=== PATIENT | male | born 1985 | race Caucasian/White ===

== ENCOUNTER 2018-08-26 12:02 | Inpatient (IN) | payer OTHER ==
[~2018-08-26] VITALS: Ht 175.3 cm; Wt 54.4 kg
--- NOTE | 2018-08-26 12:45 | NUR ---
PRE-ASSESSMENT NOTE: assessed pt in intake office, pt is in stable condition. pt is the main source of information and appears to be mildly intoxicated and verbalized i last used prior to coming in. pt is compliant and pleasant. explained protocols and procedures and pt verbalized understanding.
[2018-08-26 13:30] VITALS: BP 160/101
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
[2018-08-26 14:00] VITALS: BP 145/82
--- NOTE | 2018-08-26 14:44 | NUR ---
MD COMMUNICATION Patient seen and examined by Dr. Chavez with new admitting orders. Patient scheduled to begin a 4 day Subutex taper, tomorrow morning. Continues under close observation and has PRN medications available for s/sx of withdrawal.
[2018-08-26] MEDS ORDERED: MIRALAX 17 GM POWD.PACK PO PRN (14:45)
[2018-08-26] MEDS ORDERED: ACETAMINOPHEN 325 MG TABLET PO PRN (14:45)
[2018-08-26] MEDS ORDERED: ONDANSETRON ODT 4 MG TAB.RAPDIS SL PRN (14:45)
[2018-08-26] MEDS ORDERED: HYDROXYZINE PAMOATE 25 MG CAPSULE PO PRN (14:45)
[2018-08-26] MEDS ORDERED: LOPERAMIDE HCL 2 MG CAPSULE PO PRN ×2 (14:45)
[2018-08-26] MEDS ORDERED: MAG HYDROX/AL HYDROX/SIMETH 30 ML LIQUID UDC PO PRN (14:45)
[2018-08-26] MEDS ORDERED: MAGNESIUM HYDROXIDE 30 ML LIQUID UDC PO PRN (14:45)
[2018-08-26 15:09] LABS: *AMPHETAMINE, URINE NEGATIVE (NEGATIVE); *BARBITURATE, URINE NEGATIVE (NEGATIVE); *CANNABINOID, URINE POSITIVE (NEGATIVE); *COCCAINE, URINE POSITIVE (NEGATIVE); *OPIATE, URINE POSITIVE (NEGATIVE); *PHENCYCLIDINE SCREEN,URINE NEGATIVE (NEGATIVE)
[2018-08-26 16:46] VITALS: BP 140/86
--- NOTE | 2018-08-26 17:00 | NUR ---
COW ASSESSMENT Patient in room, noted with anxious mood and flat affect, exhibiting the following s/sx of withdrawal: c/o chills, enlarged pupils, runny nose, abdominal cramps, agitation, anxiety, decreased appetite, depression, difficulty concentrating, emotional volatility, generalized discomfort, hypervigilance, increased emotional amplitude, restlessness, and tremors. Patient with current COW score of: 9. Will continue to monitor.
[2018-08-26 18:11] LABS: BASOPHILS # (AUTO) 0.1 K/uL (0.0-8.0); BASOPHILS % (AUTO) 1.2 % (0.0-2.0); EOSINOPHILS # (AUTO) 0.4 K/uL (0.0-0.7); EOSINOPHILS % (AUTO) 4.9 % (0.0-7.0); HEMATOCRIT 48.1 % (36.7-47.1); HEMOGLOBIN 16.4 g/dL (12.5-16.3); LYMPHOCYTES # (AUTO) 2.6 K/uL (20.0-40.0); LYMPHOCYTES % (AUTO) 33.7 % (20.5-51.5); MEAN CORPUSCULAR HEMOGLOBIN 30.2 uug (23.8-33.4); MEAN CORPUSCULAR HGB CONC 34 g/dL (32.5-36.3); MEAN CORPUSCULAR VOLUME 88.4 fL (73.0-96.2); MONOCYTES # (AUTO) 0.4 K/uL (2.0-10.0); MONOCYTES % (AUTO) 5.2 % (0.0-11.0); NEUTROPHILS # (AUTO) 4.2 K/uL (1.8-8.9); PLATELET COUNT (AUTO) 209 K/uL (152-348); RED BLOOD CELL COUNT(AUTO) 5.44 MIL/uL (4.06-5.63); WHITE BLOOD COUNT (AUTO) 7.6 K/uL (3.6-10.2)
[2018-08-26 18:20] LABS: ETHANOL < 3 MG/DL (0-0)
[2018-08-26 18:23] LABS: ALANINE AMINOTRANSFERASE 34 U/L (16-63); ALKALINE PHOSPHATASE 93 U/L (50-136); ASPARTATE AMINOTRANSFERASE 21 U/L (15-37); BILIRUBIN,TOTAL 0.5 mg/dL (0.2-1.0); CARBON DIOXIDE 28 mmol/L (21-32); CHLORIDE 102 mmol/L (98-107); CREATININE 1.1 mg/dL (0.6-1.3); GLUCOSE 89 mg/dL (74-106); MAGNESIUM 2.1 mg/dL (1.8-2.4); POTASSIUM 3.9 mmol/L (3.5-5.1); TOTAL PROTEIN, SERUM 8.5 g/dL (6.4-8.2); UREA NITROGEN, BLOOD 12 mg/dL (7-18)
[2018-08-26 18:34] LABS: THYROID STIMULATING HORMONE 0.821 mIU/mL (0.358-3.740)
--- NOTE | 2018-08-26 19:16 | NUR ---
END OF SHIFT Patient endorsed to copy camera operator nurse, all pertinent information was discussed. Patient admitted during shift. Patient is scheduled to begin a 4 day Subutex taper tomorrow morning. During shift patient was noted exhibiting the following s/sx of withdrawal: c/o chills, enlarged pupils, runny nose, abdominal cramps, agitation, anxiety, decreased appetite, depression, difficulty concentrating, emotional volatility, generalized discomfort, hypervigilance, increased emotional amplitude, restlessness, and tremors. Last COW score of: 9. No Subutex was administered during shift. No PRNs were given during shift. Safety measures are in place. Patient encouraged to participate in therapy sessions, and encouraged diversional activities to alleviate anxiety. denies SI/HI.
--- NOTE | 2018-08-26 19:30 | NUR ---
Start of Shift Patient Received. Patient was admitted for Opiate Withdrawal and with orders to start a 4 day Subutex taper. No PRN medications administered upon admission. Patients last noted COWS noted to be 9. All needs attended to promptly. Will continue plan of care as ordered.
[2018-08-26 20:21] VITALS: BP 131/86
[2018-08-26] MEDS ORDERED: TRAZ-182 PO (20:21)
[2018-08-26] MEDS ORDERED: TRAZODONE 50 MG TABLET PO ONE (22:30)
[2018-08-27] VITALS (7 sets, daily range): BP systolic 100–143; BP diastolic 74–86
--- NOTE | 2018-08-27 00:15 | NUR ---
COWS Assessment Patient is noted in bed with eyes closed. Breathing even and non labored. Vital signs rendered and pulse is noted to be 54. patient is noted to easily fall back asleep during vitals. All needs attended to promptly. will continue to monitor.
[2018-08-27] MEDS: BUPRENORPHINE HCL 2 MG TAB.SUBL SL PRN ×2 (04:58→12:23)
--- NOTE | 2018-08-27 05:00 | NUR ---
PRN medication Administration patient is noted awake and verbalizing increased restlessness, anxiety, body aches, runny nose, stomach cramps, tremulous, and piloerect skin. COWS noted to be 16. PRN Subutex 4mg administered. Will continue to monitor.
--- NOTE | 2018-08-27 06:00 | NUR ---
PRN Medication Reassessment Patient is noted in bed with eyes closed but is easily awakened. Breathing even and non labored. Patient is able to verbalize "the medication helped. I'm just trying to get more rest." COWS noted to be 7. PRN Subutex noted to be effective. Will continue to monitor.
--- NOTE | 2018-08-27 07:16 | NUR ---
End of Shift Patient is noted in bed with eyes closed. Breathing even and non labored. Patient is set to start a 4 day Subutex taper. He was noted with increase anxiety, restlessness, tremulous, runny nose, stomach cramps, and piloerect skin. Last noted COWS 16. PRN Subutex 4mg administered with medication noted to be effective. Patient noted to sleep a total of 7 hours. All needs attended to promptly. Will endorse to continue plan of care as ordered.
--- NOTE | 2018-08-27 07:35 | NUR ---
BEGINNING OF SHIFT Patient endorsement report received from material handler 1st shift nurse, all pertinent information was discussed. Patient admitted yesterday with admitting dx: opiate withdrawal. Patient is scheduled to begin a 5 day Subutex taper this morning. Received PRN: Subutex during material handler 1st shift as ordered for s/sx of withdrawal. Patient with last COW score of: 7. Slept for 7 hours. Per material handler 1st shift patient with difficulty falling and staying asleep, will notify psychiatrist during shift. Patient received in bed with eyes closed respirations even and unlabored, resopnsive to verbal stimuli. Will educate patient regarding plan of care for the day and medication regimen. Safety measures are in place. call light kept with in reach, will continue to monitor closely.
[2018-08-27] MEDS: DICYCLOMINE HCL 20 MG TABLET PO PRN ×2 (08:19→16:49)
[2018-08-27] MEDS: METHOCARBAMOL 750 MG TABLET PO PRN ×2 (08:19→16:49)
[2018-08-27] MEDS: MULTIVITAMINS,THERAPEUTIC TABLET PO SCH (08:19)
[2018-08-27] MEDS: BUPRENORPHINE HCL 2 MG TAB.SUBL SL SCH ×3 (08:19→20:18)
--- NOTE | 2018-08-27 08:19 | NUR ---
COW ASSESSMENT & PRN BENTYL/ROBAXIN Patient noted exhibiting the following s/sx of withdrawal: abdominal cramps, agitation, anhedonia, anxiety, artralgias, chills, decreased appetite, depression, difficulty concentrating, emotional volatility, fatigue, generalized discomfort, hypervigilance, increased emotional amplitude, increased startle response, low and mid back pain, malise, muscle aches, muscle spasms, nasal congestion, piloerection, restless legs, restlessness, and yawning. Patient with last COW score of: 15. Received all scheduled due medications and PRN: Bentyl and Robaxin, will monitor effectiveness of medication.
[2018-08-27] MEDS ORDERED: 4 DAY TAPER BUPRENORPHINE -SERENITY PROTOCOL SL PRN (09:00)
[2018-08-27] MEDS ORDERED: TUBERCULIN,PURIF.PROT.DERIV. 5 TU/0.1 ML TEST ID ONE (09:00)
--- NOTE | 2018-08-27 09:19 | NUR ---
BENTYL/ROBAXIN REASSESSMENT Patient reports medication effective, decrease in abdominal cramps and decrease is myalgia. Current pain level 3/10, will continue to monitor. safety measures in place.
--- NOTE | 2018-08-27 12:23 | NUR ---
PRN SUBUTEX/COW ASSESSMENT Patient presented with the following during COW assessment, nausea, abdominal cramps, agitation, anhedonia, anxiety, arthralgias, chills, decreased appetite, depression, difficulty concentrating, emotional volatility, fatigue, generalized discomfort, hypervigilance, increased emotional amplitude, increased startle response, low and mid back pain, malaise, muscle aches, muscle spasms, nasal congestion, piloerection, restless legs, restlessness, and yawning. With COW score of: 16, As per MD orders patient was administered PRN subutex 4mg SL as ordered, will monitor effectiveness of medication.
--- NOTE | 2018-08-27 12:53 | NUR ---
SUBUTEX REASSESSMENT Patient continues to exhibit the following s/sx: Nausea, abdominal cramps, agitation, anhedonia, anxiety, arthralgias, chills, decreased appetite, depression, difficulty concentrating, emotional volatility, fatigue, generalized discomfort, hypervigilance, increased emotional amplitude, increased startle response, low and mid back pain, malaise, muscle aches, muscle spasms, nasal congestion, piloerection, restless legs, restlessness, and yawning. With COW score of: 16, As per MD Administered 1500 as ordered. PRN medication not effective, MD is aware, encouraged patient to increase PO fluid intake as tolerated, offered PRN medication for nausea and declined. Will continue to monitor closely.
[2018-08-27] MEDS: CLONIDINE HCL 0.1 MG TABLET PO PRN (16:49)
[2018-08-27] MEDS: IBUPROFEN 600 MG TABLET PO PRN (16:49)
--- NOTE | 2018-08-27 16:49 | NUR ---
PRN MOTRIN/CLONIDINE/BENTYL/ROBAXIN Patient presented with the following during COW assessment, nausea, abdominal cramps, agitation, anhedonia, anxiety, arthralgias, chills, decreased appetite, depression, difficulty concentrating, emotional volatility, fatigue, generalized discomfort, hypervigilance, increased emotional amplitude, increased startle response, low and mid back pain, malaise, muscle aches, muscle spasms, nasal congestion, piloerection, restless legs, restlessness, and yawning. With COW score of: 16. Patient was administered Motrin and Robaxin for pain level of 7/10, Administered Bentyl for Abdominal cramps, Administered Clonidine for increase anxiety/agitation. Offered Anti-nausea medication and declined, will monitor for effectiveness of medications. Will continue to monitor.
--- NOTE | 2018-08-27 17:49 | NUR ---
MOTRIN/CLONIDINE/BENTYL ROBAXIN REASSESSMENT Patient reports medications were effective, current pain level of 4/10. patient reports decrease in abdominal cramps and decrease pain level. Safety measures are in place. will continue to monitor closely.
--- NOTE | 2018-08-27 19:14 | NUR ---
END OF SHIFT Patient in room, alert and oriented x4, noted isolative. Appears disheveled, unshaven and odorous. Presenting with flat affect, avoidant eye contact. Has sad facial expression, and anxious mood. Patient continues under close observation, began 1st day of Subutex taper during shift. Encouraged patient to increase PO fluid intake as tolerated. Patient noted exhibiting the following s/sx of withdrawal during shift: abdominal cramps, agitation, anhedonia, anxiety, arthralgias, chills, decreased appetite, depression, difficulty concentrating, emotional volatility, fatigue, generalized discomfort, hypervigilance, increased emotional amplitude, increased startle response, low and mid back pain, malaise, muscle aches, muscle spasms, nasal congestion, nausea, piloerection, restless legs, restlessness, and yawning. Patient with last COW score of: 16. Received PRN: Subutex 4mg sl at 1223, Bentyl and Robaxin as ordered at 0819 and 1649, and Motrin and clonidine at 1649 medications were effective. During shift patient received PPD to left F/A. Was seen by Dr. Kumar during shift, with new orders for Seroquel for sleep. Encouraged patient to increase PO fluid intake as tolerated. Denies SI/HI. Safety measures are in place. Call light with in reach, endorsed to shift stacker nurse, all pertinent information was discussed.
--- NOTE | 2018-08-27 19:30 | NUR ---
302 Start of Shift Received report on 33 year old male admitted to [facility] for medically supervised withdrawal from Opiates with a history of cocaine and marijuana use. Pt received PRN Bentyl x 2, Robaxin x 2, Subutex, and Clonidine. Last COW 16 @ 1600. Pt currently on day 1 of a 4 day Subutex taper. Pt in dark room, room and pt unkempt, anxious, agitated, flushed, and complains of poor appetite for food and/or fluids, generalized pains, and difficulty resting. Respirations even and unlabored. Will continue to monitor.
--- NOTE | 2018-08-27 20:17 | NUR ---
PRN Tylenol Pt has low grade temperature and complains of generalized pain 07/09. Tylenol given per order. Will monitor effect.
--- NOTE | 2018-08-27 21:17 | NUR ---
Reassess PRN Tylenol Tylenol not effective. Continue to have complaint of generalized pain 5/10. Will continue to monitor.
[2018-08-27] MEDS: QUETIAPINE FUMARATE 25 MG TABLET PO SCH (21:50)
--- NOTE | 2018-08-28 00:46 | NUR ---
CIWA/VITALS CIWA deferred. Vitals refused. Pt in bed resting, Respirations even and unlabored. Continue to monitor. Addendum: 08/28/18 at 0413 by JOSÉ TORREZ LVN correction COWS not CIWA
--- NOTE | 2018-08-28 04:08 | NUR ---
CIWA/ Vitals CIWA deferred. Vitals refused. Pt in bed resting, Respirations even and unlabored. Continue to monitor. Addendum: 08/28/18 at 0413 by JOSÉ TORREZ LVN correction COWS not CIWA
[2018-08-28 06:05] LABS: HEPATITIS B SURFACE AG Negative (Negative)
--- NOTE | 2018-08-28 06:47 | NUR ---
End of Shift Will endorse care of 33 year old male admitted to [facility] for medically supervised withdrawal from Opiates with a history of cocaine and marijuana use. Pt received PRN Tylenol x1. Last COW 15 at 1999. Pt currently on day 2 of a 4 day Subutex taper. PO intake 1332ml, void x3, BM x 0 ,and slept x 9 hours. Pt in bed resting with eyes closed. Respirations even and unlabored.
--- NOTE | 2018-08-28 07:30 | NUR ---
BEGINNING OF SHIFT Patient received in bed with eyes closed, respirations even and unlabored. Patient responsive to verbal stimuli, will educate patient during shift of plan of care for the day and medication regimen. Received report received from hourly shift manager nurse, all pertinent information was discussed. continues under close observation and ongoing 4 day Subutex taper, scheduled to begin day 2 of taper. Patient with last COW score of: 15. Slept for 9 hours. Per hourly shift manager patient with low grade fever, will monitor closely during shift. Received PRN: Tylenol during hourly shift manager, medication was effective. Safety measures are in place. call light kept with in reach, will continue to monitor closely.
[2018-08-28 08:30] VITALS: BP 118/90
[2018-08-28] MEDS: IBUPROFEN 600 MG TABLET PO PRN (08:32)
[2018-08-28] MEDS: METHOCARBAMOL 750 MG TABLET PO PRN (08:32)
[2018-08-28] MEDS: DICYCLOMINE HCL 20 MG TABLET PO PRN ×2 (08:33→21:25)
[2018-08-28] MEDS: MULTIVITAMINS,THERAPEUTIC TABLET PO SCH (08:33)
--- NOTE | 2018-08-28 08:33 | NUR ---
COW ASSESSMENT & PRN BENTYL/ROBAXIN Patient continues under close observation, presented with:abdominal cramps, agitation, anhedonia, anxiety, arthralgias, chills, decreased appetite, depression, difficulty concentrating, emotional volatility, fatigue, generalized discomfort, hypervigilance, increased emotional amplitude, increased startle response, low and mid back pain, malaise, muscle aches, muscle spasms, nasal congestion, piloerection, restless legs, restlessness, and yawning. Patient with last COW score of: 15. Received all scheduled due medications and PRN: Bentyl for abdominal cramps, Motrin (for low and mid back pain /10) and Robaxin (for myalgia 10), will monitor effectiveness of medication. Safety measures in place.
[2018-08-28] MEDS ORDERED: BUPRENORPHINE HCL 2 MG TAB.SUBL SL SCH (09:00)
--- NOTE | 2018-08-28 09:33 | NUR ---
BENTYL/MOTRIN/ROBAXIN REASSESSMENT Patient reports medication effective, decrease in abdominal cramps and decrease is myalgia and decrease in low and mid back pain. Current pain level 4/10, will continue to monitor. safety measures in place.
--- NOTE | 2018-08-28 10:28 | NUR ---
Therapist prompted client to attend group therapy.
--- NOTE | 2018-08-28 13:00 | NUR ---
COW ASSESSMENT Patient continues to present with the following s/sx: stomach cramps, anhedonia, anxiety, arthralgias, chills, decreased appetite, depression, difficulty concentrating, emotional volatility, fatigue, generalized discomfort, hypervigilance, increased emotional amplitude, increased startle response, low and mid back pain, malaise, muscle aches, muscle spasms, nasal congestion, piloerection, restless legs, restlessness, and yawning. current COW score of: 15. Will continue to monitor.
[2018-08-28 13:06] VITALS: BP 131/88
[2018-08-28] MEDS: BUPRENORPHINE HCL 2 MG TAB.SUBL SL SCH ×2 (14:55→21:25)
--- NOTE | 2018-08-28 16:39 | NUR ---
COW ASSESSMENT Continues to exhibit:stomach cramps, anhedonia, anxiety, arthralgias, chills, decreased appetite, depression, difficulty concentrating, emotional volatility, fatigue, generalized discomfort, hypervigilance, increased emotional amplitude, increased startle response, low and mid back pain, malaise, muscle aches, muscle spasms, nasal congestion, piloerection, restless legs, restlessness, and yawning. current COW score of: 15. Will continue to monitor. Safety measures are in place. scheduled medications administered as ordered.
[2018-08-28 16:40] VITALS: BP 146/94
--- NOTE | 2018-08-28 18:54 | NUR ---
END OF SHIFT Patient continues under close observation. Admitting Dx: opiate withdrawal. Patient continues with ongoing 4 day Subutex taper as ordered, currently on day 2 of taper. During shift patient presented with avoidant eye contact, and flat affect. Noted with anxious/depressed mood. Appears disheveled, and unshaven, encouraged patient maintain of personal space and self grooming with good verbal understanding, offered linen change and refused. Still noted isolative, encouraged to participate in group therapies/sessions to learn new coping skills to prevent relapse. Exhibited the following s/sx of withdrawal during shift: abdominal cramps, agitation, anhedonia, anxiety, arthralgias, chills, decreased appetite, depression, difficulty concentrating, emotional volatility, fatigue, generalized discomfort, hypervigilance, increased emotional amplitude, increased startle response, low and mid back pain, malaise, muscle aches, muscle spasms, nasal congestion, piloerection, restless legs, restlessness, and yawning. Patient with last COW score of: 15. Received PRN: Motrin, Bentyl and Robaxin during shift, medications were effective. Encouraged patient to increase PO fluid intake as tolerated. Denies SI/HI. Safety measures are in place. Call light with in reach, endorsed to warehouse supervisor 3rd shift nurse, all pertinent information was discussed.
--- NOTE | 2018-08-28 19:45 | NUR ---
Start of Shift Note Received a 33 y/o male px, admitted for medically supervised withdrawal from Heroin. Px is also using cocaine and marijuana. Px was placed on 4 day Subutex taper, started 08/27/2018. He is tolerating it. Last COWS reported by AM shift nurse is 15. During the rounds at 1945, px is awake on bed in fowlers position watching TV. Few drinks noted on top of the bed side table. Px appears anxious and depressed. He has flat affect. He is unshaven. Px states that his anxiety is pretty low right now but complains of stomach cramps and chills. Bed on lowest position, side rails up 2x and call light within reach. Well continue to monitor.
[2018-08-28 20:00] VITALS: BP 115/76
--- NOTE | 2018-08-28 20:00 | NUR ---
COWS 11 Upon assessment, Px appears anxious and depressed. He has flat affect. He states that his anxiety is pretty low right now but complains of stomach cramps and chills. NC= 74. will continue to monitor
[2018-08-28] MEDS: QUETIAPINE FUMARATE 25 MG TABLET PO SCH (21:25)
--- NOTE | 2018-08-28 21:25 | NUR ---
PRN Bentyl Px received Bentyl 20 mg PO for stomach cramps. To reassess after an hour
--- NOTE | 2018-08-28 22:30 | NUR ---
PRN Klaus reassessment Px states that his stomach cramps improved.
[2018-08-29] VITALS: BP 111/71
--- NOTE | 2018-08-29 | NUR ---
COWS 10 Upon assessment, Px still awake on bed on right side lying position. He states that his anxiety is still on low side and have chills. AL= 71. will continue to monitor
[2018-08-29 04:00] VITALS: BP 109/69
--- NOTE | 2018-08-29 04:00 | NUR ---
COWS deferred COWS deferred due to the px is asleep, to assess if the px is awake per doctor's order. will continue to monitor
--- NOTE | 2018-08-29 07:05 | NUR ---
End of Shift Note During the shift at 2124, px received Bentyl 20 mg PO for stomach cramps. It was effective. Oral intake of 1000 ml, voided 2x, No BM. Px slept for 6 hours. Last COWS 10. Bed on lowest position, side rails up 2x and call light within reach. Well continue to monitor. Px was endorsed to AM shift nurse.
--- NOTE | 2018-08-29 07:30 | NUR ---
START OF SHIFT Endorse rcvd from ongoing nurse, client is in bed, lying on his R side, eyes closed, he sounds asleep, easy to arouse, RR 16 even, non-labored, dark circles under eyes, unshaven, and dry lips. Last COWS 10 @ 2400. PRN Bentyl 20mg PO for abdominal spasms. Client slept 6 hrs. Client is on third of 4 day Subutex taper. [place] precautions in place. Call light within reach.
--- NOTE | 2018-08-29 08:22 | NUR ---
Zero induration noted at PPD test on L forearm.
[2018-08-29 08:55] VITALS: BP 127/73
[2018-08-29] MEDS: BUPRENORPHINE HCL 2 MG TAB.SUBL SL SCH ×3 (09:52→21:00)
[2018-08-29] MEDS: MULTIVITAMINS,THERAPEUTIC TABLET PO SCH (09:52)
--- NOTE | 2018-08-29 09:52 | NUR ---
COWS 10 Client is in bed, a/o to name, place, and situation. Client reports abdominal cramps, agitation, anxiety, nausea, appetite loss, yawning, chills, clammy skin, depression, difficulty concentrating, difficulty thinking clearly, enlarged pupils, fatigue, tremors felt, insomnia, muscle aches all, and panic feeling. Administered Subutex 2mg SL. Call light within reach.
--- NOTE | 2018-08-29 12:31 | NUR ---
COWS 10 Client presents with agitation, anxiety, poor appetite, chills, clammy skin, depression, emotional volatility, enlarged pupils, fatigue, fine tremors, flushed face, and yawning. Client decline PRN medications to help manage withdrawal symptoms. Will continue to monitor. Encourage client to increase PO fluid to facilitate detox. Call light within reach.
[2018-08-29 12:33] VITALS: BP 125/88
--- NOTE | 2018-08-29 15:40 | NUR ---
COWS 10 Client reports abdominal cramps, agitation, anxiety, nausea, appetite loss, yawning, chills, clammy skin, depression, enlarged pupils, fatigue, and tremors felt. Client refuses Subutex 2mg SL, stating, "I will take it tonight, I must get used to deal with this without the extra help from medication." Educated client on the need for compliance with Subutex taper medication, but he still refused the med. MD and CN notified. Call light within reach.
[2018-08-29 16:55] VITALS: BP 135/86
--- NOTE | 2018-08-29 19:11 | NUR ---
END OF SHIFT Endorse client to incoming nurse, client is in room, a/o x 4. Client continues to present agitation, anxiety, tremors, nausea, restlessness, and difficulty concentrating. Client is on third of 5 day Subutex taper. Last COWS 10 @ 1600. PO fluid intake 1250mL, void x 2, stool x 2. Client is compliant with 2/3 of group therapy. Consumes 50-75% of meals. Call light within reach.
[2018-08-29 20:00] VITALS: BP 139/89
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
[2018-08-29] MEDS: CLONIDINE HCL 0.1 MG TABLET PO PRN (20:03)
--- NOTE | 2018-08-29 20:03 | NUR ---
Subutex Refusal Clonidine Administration 2002 Pt refused scheduled Subutex. Pt stated, I dont want it. I feel chills, but I dont want to take it for that reason, Im okay for tonight. Pt educated on risks/benefits of medication, however pt continue to refused medication. Clonidine 0.1mg PRN administered for anxiety. Safety measures in place, will continue to monitor.
[2018-08-29] MEDS ORDERED: QUETIAPINE FUMARATE 25 MG TABLET PO SCH (21:00)
--- NOTE | 2018-08-29 21:03 | NUR ---
Clonidine Reassessment Upon reassessment, pt is seen in bed, watching television. Pt states, "I feel less anxious then before. I'm getting ready to sleep". Clonidine effective. Safety measures in place, will continue to monitor.
--- NOTE | 2018-08-30 | NUR ---
COWS Deferred COWS deferred d/t pt sleeping - to assess while pt is awake as ordered. Pt refused to be woken up for VS assessment. Safety measures in place, will continue to monitor.
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
[2018-08-30 08:00] VITALS: BP 138/85
--- NOTE | 2018-08-30 08:10 | NUR ---
START OF SHIFT: Received Pt A/O X 4. Pt presents with anxious mood and congruent affect. He reports mild body aches and occasional chills. COWS 6. He refused all morning meds including Subutex and states he does not want them. Educated him on potential consequences of refusing medications. He expressed verbal understanding of education. MD aware.Encouraged group attendance to improve coping skills and prevent relapse. Will continue to monitor and offer support.
[2018-08-30] MEDS ORDERED: BUPRENORPHINE HCL 2 MG TAB.SUBL SL SCH (09:00)
[2018-08-30] MEDS: MULTIVITAMINS,THERAPEUTIC TABLET PO SCH (09:00)
[2018-08-30 12:00] VITALS: BP 138/86
--- NOTE | 2018-08-30 12:20 | NUR ---
COWS 4 at noon. He reports intermittent chills and anxiety.
--- NOTE | 2018-08-30 12:50 | NUR ---
Therapist prompted client to attend all group therapy sessions.
[2018-08-30] MEDS ORDERED: CLON0.1T14 PO (13:24)
[2018-08-30 16:00] VITALS: BP 143/92
[2018-08-30] MEDS: ESCITALOPRAM OXALATE 10 MG TABLET PO SCH (16:32)
[2018-08-30] MEDS: CLONIDINE HCL 0.1 MG TABLET PO PRN (18:26)
--- NOTE | 2018-08-30 18:30 | NUR ---
END OF SHIFT: Pt refused detox meds as he stated he wants to move forward with IOP and not feel ill from detox meds. Education provided about detox taper and he expressed verbal understanding of education. Last COWS 4. He attended groups and interacted with peers this shift. He is scehduled for discharge tomorrow in Am. Will pass shift report to oncoming night nurse.
--- NOTE | 2018-08-30 19:10 | NUR ---
Start of Shift Received 33 year old male admitted 08/26/18 to [facility] for medically supervised withdrawal from Opiates. Completed 4 day Subutex taper this am, tolerated well. Last COWS 4 at 1600. Pt in bed awake, alert, and oriented. Pt worried, guarded, withdrawn, and isolative. Pt complains of insomnia and requesting his scheduled Seroquel to be given as late possible. Pt to be discharged to [facility] in am. Bed down, side rails up x 2, and call morales in reach. Continue to monitor.
--- NOTE | 2018-08-30 20:00 | NUR ---
COWS 3 Pt awake, alert, and oriented. Denies N/V, sweating/chills. Pt is anxious, withdrawn and isolative.
[2018-08-30 20:06] VITALS: BP 117/78
[2018-08-30] MEDS ORDERED: QUETIAPINE FUMARATE 100 MG TABLET PO SCH (21:00)
[2018-08-30] MEDS ORDERED: QUETIAPINE FUMARATE 25 MG TABLET PO SCH (21:00)
--- NOTE | 2018-08-31 00:12 | NUR ---
COWS Deferred Pt resting eyes closed. Respirations even and unlabored. Continue to monitor.
--- NOTE | 2018-08-31 00:14 | NUR ---
0000 Vitals refused Pt resting with eyes closed. Vitals refused. Respirations even and unlabored @14 per minute. Error in previous vitals sign input, respirations of 14 were recorded under pulse rather then respiratory rate.
--- NOTE | 2018-08-31 04:11 | NUR ---
COWS deferred/Vitals refused Pt resting with eyes closed, cows deferred. Vitals refused.Respirations even and unlabored. Will continue to monitor.
--- NOTE | 2018-08-31 06:35 | NUR ---
End of Shift Endorsing 33 year old male admitted 08/26/18 to [facility] for medically supervised withdrawal from Opiates. Completed 4 day Subutex taper 08/30/18, tolerated well. Last COWS 3 at 1999. Pt did not request or receive any PRN medications. Pt in bed resting with eyes closed. Respirations even and unlabored. PO intake 795ml, voided x 3, BM x 0, and slept x 9hours. Pt to be discharged to [facility] this am. Bed down, side rails up x 2, and call morales in reach.
--- NOTE | 2018-08-31 07:30 | NUR ---
Start of Shift Notes: Received endorsement from night nurse. Patient is a 33 year old male admitted for opiate withdrawal who was placed on a 4-day Subutex taper as ordered. Patient will be discharging today. Per night report, patient was not given any PRNs. Last COWS 3. Slept for 9 hours. Compliant with care. Will continue to monitor. Addendum: 08/31/18 at 0946 by JIGNESH ELLIOTT LVN Additional Start of Shift Notes: Received patient in his room. Alert and oriented x 4. Verbally responsive. Denies S/I or H/I noted. Appears worried and anxious. Restlessness noted while in bed. Encouraged patient to verbalize his feelings and concerns. Appears disheveled. Garbage noted around the room. Encouraged maintenance of personal hygiene and space. Educated patient on the discharge process. Patient verbalized understanding. All needs met and attended. Will continue to monitor closely.
[2018-08-31 08:00] VITALS: BP 126/82
--- NOTE | 2018-08-31 08:00 | NUR ---
COWS Assessment: COWS 3, patient presented with anxiety, agitation and intermitent chills and hot flashes. Patient will be discharging today. Will continue to monitor.
[2018-08-31] MEDS: MULTIVITAMINS,THERAPEUTIC TABLET PO SCH (08:27)
[2018-08-31] MEDS: ESCITALOPRAM OXALATE 10 MG TABLET PO SCH (08:27)
--- NOTE | 2018-08-31 09:40 | NUR ---
Discharged: Patient education provided regarding his discharge instructions. VS stable. COWS 3. Denies S/I or H/I noted. No AV hallucinations noted. Patient verbalized good understanding of all discharge teachings. All pertinent information discussed. Clothing, valuables and personal belongings were returned to the patient. Placed all necessary DC paperwork inside blue and black duffel bag. Discharge packet also included. CHLORINATOR cabinet checked. Cassette checked. Patient was picked up by [facility] to be transported to [facility]. All needs met and attended. Patient left in stable condition.
== END 2018-08-31 09:40 | disposition other institution (70) | DRG 895 ==
LOC: SRC 12:02
PROVIDERS: ADMIT Family Medicine Addiction Medicine; ATTEND Family Medicine Addiction Medicine
DX: F11.23 Opioid dependence with withdrawal (principal); F43.10 Post-traumatic stress disorder, unspecified; X95.9XXS Assault by unspecified firearm discharge, sequela; Z81.3 Family history of other psychoactive substance abuse and dependence; F51.5 Nightmare disorder; F32.9 Major depressive disorder, single episode, unspecified; F12.90 Cannabis use, unspecified, uncomplicated; F14.90 Cocaine use, unspecified, uncomplicated; G47.00 Insomnia, unspecified
CPT/HCPCS: 36415; 70030-TC; 80307; 80349; 80353; 80361; 83735; 84443; 85025; 86580; 86592; 86705; 86803; 87340; 87806; G0480